=== PATIENT | male | born 1995 | race African-American/Black ===

== ENCOUNTER 2016-08-13 19:28 | Emergency (ER) | payer BC ==
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
== END 2016-08-13 22:35 | disposition home or self-care (01) ==
LOC: CED 19:28 → CFTX 19:28
DX: S16.1XXA Strain of muscle, fascia and tendon at neck level, initial encounter (principal); S39.012A Strain of muscle, fascia and tendon of lower back, initial encounter; S80.01XA Contusion of right knee, initial encounter; V49.40XA Driver injured in collision with unspecified motor vehicles in traffic accident, initial encounter; Y92.488 Other paved roadways as the place of occurrence of the external cause
CPT/HCPCS: 29530; 72125; 73562; 74176; 96372; 99284; J1885